=== PATIENT | male | born 1965 | race American Indian/Alaskan Native ===

== ENCOUNTER 2017-10-25 21:21 | Inpatient (IN) | payer OTHER ==
--- NOTE | 2017-10-25 22:22 | ED PDOC ---
Arrival/HPI - General Chief Complaint: Medical Clearance Time Seen by Provider: 10/25/17 22:12 Historian: Patient - History of Present Illness Narrative History of Present Illness (Text): 10/25/17 22:15 Chapincito Trent is a 52 year old male, whose past medical history includes salivary gland stone s/p parotidectomy, who presents to the Emergency department complaining of right-sided facial swelling today after eating. Patient denies any pain to the area and notes symptoms are similar to his previous salivary gland stone symptoms. Patient denies any rash, throat/lip swelling, headache, dizziness, or any other complaints. Time/Duration: Other (tonight) Symptom Onset: Gradual Symptom Course: Unchanged Activities at Onset: Light, Eating Context: Home Past Medical History - Provider Review Nursing Documentation Reviewed: Yes - Infectious Disease Hx of Infectious Diseases: None - Endocrine/Metabolic Hx Diabetes Mellitus Type 1: Yes - Gastrointestinal Hx Gastroesophageal Reflux: Yes - Psychiatric Hx Substance Use: No - Surgical History Other/Comment: salivary glad removed - Anesthesia Hx Anesthesia: Yes Hx Anesthesia Reactions: No Hx Malignant Hyperthermia: No Family/Social History - Physician Review Nursing Documentation Reviewed: Yes Family/Social History: Unknown Family HX Smoking Status: Light Smoker < 10 Cigarettes Daily Hx Alcohol Use: Yes Frequency of alcohol use: Socially Hx Substance Use: No Allergies/Home Meds Allergies/Adverse Reactions: Allergies No Known Allergies Allergy (Unverified 10/25/17 22:21) Home Medications: Home Meds Medication Instructions Recorded Confirmed Unobtainable 10/25/17 10/25/17 Review of Systems - Physician Review All systems were reviewed & negative as marked: Yes - Review of Systems Constitutional: Normal. absent: Fevers Eyes: Normal ENT: Other (+right-sided facial swelling) Respiratory: Normal. absent: SOB, Cough Cardiovascular: Normal. absent: Chest Pain Gastrointestinal: Normal. absent: Abdominal Pain, Diarrhea, Nausea, Vomiting Genitourinary Male: Normal. absent: Dysuria, Frequency, Hematuria, Urinary Output Changes Musculoskeletal: Normal. absent: Back Pain, Neck Pain Skin: Normal. absent: Rash Neurological: Normal. absent: Headache, Dizziness Endocrine: Normal Hemo/Lymphatic: Normal Psychiatric: Normal Physical Exam Vital Signs Reviewed: Yes Vital Signs Temp Pulse Resp BP Pulse Ox 10/26/17 02:37 85 17 138/72 98 10/25/17 22:21 98.4 F 81 18 141/65 98 Temperature: Afebrile Blood Pressure: Normal Pulse: Regular Respiratory Rate: Normal Appearance: Positive for: Well-Appearing, Non-Toxic, Comfortable Pain Distress: None Mental Status: Positive for: Alert and Oriented X 3 - Systems Exam Head: Present: Atraumatic, Normocephalic, Swelling (Soft tissue swelling to right angle of mandible/pre-auricular area, non-tender, no overlying erythema noted). No: Tenderness Pupils: Present: PERRL Extroacular Muscles: Present: EOMI Conjunctiva: Present: Normal Ears: Present: Normal, NORMAL TM, Normal Canal. No: Erythema, TM Bulging, Fluid , TM Perf Mouth: Present: Moist Mucous Membranes Pharnyx: Present: Normal. No: ERYTHEMA, EXUDATE, TONSILS ENLARGED, Peritonsilar Swelling, Uvular Deviation, Muffled/Hoarse Voice, Strider, Soft Palate/Uvular Edema Nose (External): Present: Atraumatic Nose (Internal): Present: Normal Inspection Neck: Present: Normal Range of Motion Respiratory/Chest: Present: Clear to Auscultation, Good Air Exchange. No: Respiratory Distress, Accessory Muscle Use Cardiovascular: Present: Regular Rate and Rhythm, Normal S1, S2. No: Murmurs Upper Extremity: Present: Normal Inspection. No: Cyanosis, Edema Lower Extremity: Present: Normal Inspection. No: Edema Neurological: Present: GCS=15, CN II-XII Intact, Speech Normal Skin: Present: Warm, Dry, Normal Color. No: Rashes Psychiatric: Present: Alert, Oriented x 3, Normal Insight, Normal Concentration Medical Decision Making ED Course and Treatment: 10/25/17 22:15 Impression: 52 year old male complaining of right-sided facial swelling today after eating. Plan: -- CT Maxillofacial -- Labs -- Reassess and disposition Progress Notes: 10/26/17 03:20 CT Maxillofacial shows: There is asymmetry of the submandibular and the parotid glands, being greater on the right. While the increased size of the right sided glands may be partially indicative of infectious/inflammatory process, the glands on the left appear abnormally small. There is asymmetry in the enhancement pattern of the parotid glands being normal on the right and being decreased on the left. There is a small amount of fluid along the lateral aspect of the right parotid gland and to a lesser degree the right mandibular gland. Small scattered lymph nodes are noted throughout the neck. Vasculature appears normal. The airway is patent The sinuses and mastoid air cells are clear. IMPRESSION: Asymmetry of the submandibular and parotid glands being greater on the right. Findings felt to be a combination of infectious/inflammatory process on the right as well as some degree of hypoplasia on the left. 10/26/17 03:[address] Parsons, covering for Dr. Beavers, who is aware and agrees with plan. [facility]. Requests ENT on consult. - Lab Interpretations Lab Results: 10/25/17 23:00 10/25/17 23:00 Lab Results 10/25/17 23:00: WBC 14.0 H, RBC 4.48, Hgb 14.0, Hct 40.6 L, MCV 90.6, MCH 31.3, MCHC 34.5, RDW 13.3, Plt Count 213, MPV 9.7 10/25/17 23:00: Sodium 143, Potassium 4.3, Chloride 106, Carbon Dioxide 25, Anion Gap 17, BUN 16, Creatinine 1.0, Est GFR ( Amer) > 60, Est GFR (Non- Af Amer) > 60, Random Glucose 98, Calcium 9.9, Total Bilirubin 0.2, AST 29, ALT 38, Alkaline Phosphatase 92, Total Protein 7.9, Albumin 4.3, Globulin 3.6, Albumin/Globulin Ratio 1.2 - RAD Interpretation Radiology Orders: 10/25/17 22:55 MAXILLOFACIAL W/CONTRAST [CT] Stat - Medication Orders Current Medication Orders: Ampicillin Sodium/Sulbactam (Sodium 3 gm/ Sodium Chloride) 100 mls @ 100 mls/ hr IVPB STAT STA PRN Reason: Protocol Stop: 10/26/17 04:43 Sodium Chloride (Sodium Chloride 0.9%) 1,000 mls @ 100 mls/hr IV .Q10H [facility] Ibuprofen (Motrin Tab) 400 mg PO Q6H PRN PRN Reason: Pain, Mild (1-3) - Scribe Statement The provider has reviewed the documentation as recorded by the Luisaibdi Braxton Provider Scribe Attestation: All medical record entries made by the Scribe were at my direction and personally dictated by me. I have reviewed the chart and agree that the record accurately reflects my personal performance of the history, physical exam, medical decision making, and the department course for this patient. I have also personally directed, reviewed, and agree with the discharge instructions and disposition. Disposition/Present on Arrival - Present on Arrival Any Indicators Present on Arrival: No History of DVT/PE: No History of Uncontrolled Diabetes: No Urinary Catheter: No History of Decub. Ulcer: No History Surgical Site Infection Following: None - Disposition Have Diagnosis and Disposition been Completed?: Yes Diagnosis: Cellulitis, Salivary gland infection Disposition: HOSPITALIZED Disposition Time: 04:08 Condition: STABLE
[2017-10-25 23:18] LABS: MEAN CELL VOLUME 90.6 fl (80.0-105.0); MEAN CORPUSCULAR HEMOGLOBIN 31.3 pg (25.0-35.0); MEAN CORPUSCULAR HGB CONC 34.5 g/dl (31.0-37.0); MEAN PLATELET VOLUME 9.7 fl (7.0-11.0); RBC 4.48 10^6/uL (3.5-6.1); RED CELL DISTRIBUTION WIDTH 13.3 % (11.5-14.5)
[2017-10-25 23:34] LABS: ALB/GLOB RATIO 1.2 (1.1-1.8); ALBUMIN 4.3 g/dL (3.0-4.8); ALT/SGPT 38 U/L (7-56); AST/SGOT 29 U/L (17-59); BLOOD UREA NITROGEN 16 mg/dL (7-21); CALCIUM 9.9 mg/dL (8.4-10.5); GFR AFRICAN-AMERICAN > 60; GFR NON-AFRICAN AMERICAN > 60
[2017-10-26] MEDS ORDERED: Iohexol 350 MG/100 ML VIAL ONE (01:21)
--- NOTE | 2017-10-26 02:40 | CT ---
EXAM: CT Maxillofacial With Intravenous Contrast EXAM DATE/TIME: 10/25/2017 10:55 PM CLINICAL HISTORY: 52 years old, male; Signs and symptoms; Mass, lump, or swelling; Maxilla; Additional info: Soft tswelling right preauricular/facial/mandible TECHNIQUE: Axial computed tomography images of the face with intravenous contrast. All CT scans at this facility use one or more dose reduction techniques, viz.: automated exposure control; ma/kV adjustment per patient size (including targeted exams where dose is matched to indication; i.e. head); or iterative reconstruction technique. Coronal and sagittal reformatted images were created and reviewed. CONTRAST: 96 mL of OMNI 350 administered intravenously. COMPARISON: No relevant prior studies available. FINDINGS: There is asymmetry of the submandibular and the parotid glands, being greater on the right. While the increased size of the right sided glands may be partially indicative of infectious/inflammatory process, the glands on the left appear abnormally small. There is asymmetry in the enhancement pattern of the parotid glands being normal on the right and being decreased on the left. There is a small amount of fluid along the lateral aspect of the right parotid gland and to a lesser degree the right mandibular gland. Small scattered lymph nodes are noted throughout the neck. Vasculature appears normal. The airway is patent The sinuses and mastoid air cells are clear. IMPRESSION: Asymmetry of the submandibular and parotid glands being greater on the right. Findings felt to be a combination of infectious/inflammatory process on the right as well as some degree of hypoplasia on the left.
[2017-10-26] MEDS ORDERED: SULBACTAM IV STA (03:37)
[2017-10-26] MEDS ORDERED: AMPICILLIN IV STA (03:37)
[2017-10-26] MEDS: Sodium Chloride 0.9% 1,000 ML IV SCH (04:34)
[2017-10-26 05:11] VITALS: BMI 24.8
[2017-10-26] MEDS: Piperacillin/Tazobact 3.375 gm 100 ML IVPB SCH ×4 (06:33→23:12)
--- NOTE | 2017-10-26 12:52 | CP.PCM.CON ---
History of Present Illness - History of Present Illness History of Present Illness: 52 year old male with PMH of left sided parotidectomy due to sialolithiasis, GERD, DM came in to [facility] complaining of sudden onset swelling of the right side of the face after eating dinner, associated with pain. He denies having fever or chills, no rhinorrhea, no cough, no sore throat, no headache or dizziness, no chest pain, no SOB, no abdominal pain, no diarrhea, no dysuria, no dysphagia. As per patient this is how it started with the left side many years ago which lasted for many years before surgery was done. CT scan of the maxillofacial area is showing right sided parotid swelling. Infectious Diseases consult is requested to further evaluate and manage. Review of Systems - Review of Systems All systems: reviewed and no additional remarkable complaints except (as per HPI ) Past Patient History - Infectious Disease Hx of Infectious Diseases: None - Past Social History Smoking Status: Light Smoker < 10 Cigarettes Daily - CARDIAC Hx Cardiac Disorders: Yes Hx Angina: No Hx Cardia Arrhythmia: No Hx Circulatory Problems: No Hx Congestive Heart Failure: No Hx Heart Murmur: No Hx Heart Transplant: No Hx Hypercholesterolemia: No Hx Hypertension: Yes Hx Internal Defibrillator: No Hx Mitral Valve Prolapse: No Hx Pacemaker: No Hx Peripheral Edema: No Hx Peripheral Vascular Disease: No - PULMONARY Hx Respiratory Disorders: No Hx Asthma: No Hx Bronchitis: No Hx Chronic Obstructive Pulmonary Disease (COPD): No Hx Emphysema: No Hx Pneumonia: No Hx Respiratory Aspiration: No Hx Respiratory Tract Infection: No Hx Sleep Apnea: No Hx Tuberculosis: No - NEUROLOGICAL Hx Neurological Disorder: No Hx Alzheimer's Disease: No HX Cerebrovascular Accident: No Hx Dementia: No Hx Dizziness: No Hx Meningitis: No Hx Migraine: No Hx Parkinson's Disease: No Hx Seizures: No Hx Transient Ischemic Attacks (TIA): No - HEENT Hx HEENT Problems: No Hx Blind: No Hx Cataracts: No Hx Deafness: No Hx Difficulty Chewing: No Hx Epistaxis: No Hx Glaucoma: No Hx Macular Degeneration: No - RENAL Hx Chronic Kidney Disease: No Hx Dialysis: No Hx Kidney Stones: No Hx Neurogenic Bladder: No Hx Pyelonephritis: No Hx Renal (Kidney) Cancer: No Hx Renal Failure: No - ENDOCRINE/METABOLIC Hx Endocrine Disorders: Yes Hx Adrenal Cancer: No Hx Diabetes Insipidus: No Hx Diabetes Mellitus Type 1: No 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) Hx Hyperthyroidism: No Hx Hypothyroidism: No Hx Systemic Lupus Erythematosus: No - HEMATOLOGICAL/ONCOLOGICAL Hx Blood Disorders: No Hx AIDS: No Hx Anemia: No Hx Cancer: No Hx Chemotherapy: No Hx Cirrhosis: No Hx Hemophilia: No Hx Hepatitis A: No Hx Hepatitis B: No Hx Hepatitis C: No Hx Human Immunodeficiency Virus (HIV): No Hx Metastesis: No Hx Shingles: No Hx Sickle Cell Disease: No Hx Unexplained Bleeding: No - INTEGUMENTARY Hx Dermatological Problems: No Hx Basil Cell: No Hx Eczema: No Hx Melanoma: No Hx Psoriasis: No Hx Squamous Cell: No - MUSCULOSKELETAL/RHEUMATOLOGICAL Hx Falls: No - GASTROINTESTINAL Hx Gastrointestinal Disorders: Yes Hx Colostomy: No Hx Crohn's Disease: No Hx Diverticulitis: No Hx Gall Bladder Disease: No Hx Gastroesophageal Reflux: Yes (takes pepcid) Hx Ileostomy: No Hx Liver Failure: No Hx Pancreatitis: No HX Swallowing Problems: No Hx Ulcer: No - GENITOURINARY/GYNECOLOGICAL Hx Genitourinary Disorders: Yes Hx Hematuria: No Hx Incontinence: No Hx Prostate Problems: No Hx Sexually Transmitted Disorders: No Hx Urinary Tract Infection: Yes - PSYCHIATRIC Hx Substance Use: No - SURGICAL HISTORY Hx Surgeries: Yes Hx Amputation: No Hx Appendectomy: No Hx Cardiac Catheterization: No Hx Cholecystectomy: No Hx Coronary Stent: No Hx Gastric Bypass Surgery: No Hx Hysterectomy: No Hx Joint Replacement: No Hx Kidney Transplant: No Hx Liver Transplant: No Hx Mastectomy: No Hx Musculoskeletal Surgery: No Hx Open Heart Surgery: No Hx Orthopedic Surgery: No Hx Splenectomy: No Hx Valve Replacement: No Other/Comment: salivary glad removed - ANESTHESIA Hx Anesthesia: Yes Hx Anesthesia Reactions: No Hx Malignant Hyperthermia: No Meds Allergies/Adverse Reactions: Allergies Allergy/AdvReac Type Severity Reaction Status Date / Time No Known Allergies Allergy Unverified 10/25/17 22:21 - Medications Medications: Current Medications Sodium Chloride (Sodium Chloride 0.9%) 1,000 mls @ 100 mls/hr IV .Q10H ANNETTE Last Admin: 10/26/17 04:34 Dose: 100 mls/hr Ibuprofen (Motrin Tab) 400 mg PO Q6H PRN PRN Reason: Pain, Mild (1-3) Physical Exam - Constitutional Appears: Non-toxic - Head Exam Head Exam: NORMAL INSPECTION - ENT Exam ENT Exam: Mucous Membranes Moist Additional comments: right side of face with swelling - Neck Exam Neck exam: Negative for: Meningismus - Respiratory Exam Respiratory Exam: absent: Rales, Rhonchi - Cardiovascular Exam Cardiovascular Exam: +S1, +S2 - GI/Abdominal Exam GI & Abdominal Exam: Soft. absent: Tenderness Results - Vital Signs Recent Vital Signs: Last Vital Signs Temp 98.1 F 10/26/17 04:54 Pulse 74 10/26/17 04:54 Resp 19 10/26/17 05:02 BP 118/72 10/26/17 04:54 Pulse Ox 100 10/26/17 04:54 - Labs Result Diagrams: 10/25/17 23:00 10/25/17 23:00 Assessment & Plan - Assessment and Plan (Free Text) Plan: Assessment Leukocytosis due to right sided parotitis R/O sialolithiasis left sided parotidectomy due to sialolithiasis GERD DM Plan Started the patient on Zosyn pending blood cx; reviewed maxillofacial CT follow up ENT evaluation and recommendations will monitor clinically
[2017-10-26 17:36] VITALS: RESP 18
--- NOTE | 2017-10-26 23:14 | HP ---
DATE OF EXAM: HISTORY OF PRESENT ILLNESS: Patient is a 52-year-old black male, who came to Emergency Room for right submandibular swelling. He states yesterday after he ate popcorn, he started to have swelling, then became painful and he was unable to open his mouth. Pain was radiating towards his right ear. Denies any fever or chills, denies any dental issues. Patient states he had similar episode 10 years ago on his left side and he ended up having parotid gland resection done. Denies any fever or chills. No history of nausea or vomiting. PAST MEDICAL HISTORY: Significant for 1. Right parotidectomy 2. Hypertension. 3. Hyperlipidemia. ALLERGY: HE IS NOT ALLERGIC TO ANY MEDICATIONS. MEDICATION AT HOME: He is on statin. SOCIAL HISTORY: He lives with his family, works on [address]. PHYSICAL EXAMINATION: GENERAL: He is awake, alert, oriented, communicative. VITAL SIGNS: He is afebrile. Pulse 64, respirations 20, blood pressure 114/78. LUNGS: Bilateral good air flow. No rhonchi or crackles. HEART: S1 and S2 audible. ABDOMEN: Soft, nontender, no rebound, no guarding. NEUROLOGICAL: He is awake, alert, oriented, communicative. HEAD AND NECK: He has right angle of mandible and parotid area swelling that is somewhat tender and some restriction to open his mouth. LABORATORY DATA: WBC is 14, hemoglobin 14, hematocrit 40. Chemistry: Sodium 143, potassium 4.6, chloride 106, CO2 of 25, BUN 16, creatinine 1, blood sugar 98. LFTs are within normal limits. He had maxillofacial CT scan done that shows asymmetry of submandibular and parotid gland being greater on the right. Finding felt to be combination of infectious versus inflammatory process on the right side as well as some degree of hyperplasia on the left. ASSESSMENT AND PLAN: 1. Right sialadenitis and parotitis. 2. Hypertension. 3. Leucocytosis. PLAN: Start patient on ibuprofen. He is on IV fluid. Continue him on antibiotics as recommended by ID and awaiting ENT input and we will make further plan. Shawn Beavers MD
[2017-10-27 03:32] VITALS: O2SAT 97
--- NOTE | 2017-10-27 05:05 | CP.PCM.PN ---
Subjective - Date & Time of Evaluation Date of Evaluation: 10/27/17 Time of Evaluation: 05:02 - Subjective Subjective: S: Seen for upset stomach. Has heart burn. Has no other complaints. Lobo chest pain, sob. Medical record was reviewed. O: Last Vital Signs 3 Temp 97.5 F L 10/27/17 03:30 Pulse 67 10/27/17 03:30 Resp 18 10/27/17 03:30 BP 130/78 10/27/17 03:30 Pulse Ox 97 10/27/17 03:30 Awake, alert, not in distress. LUNGS:Normal breathing pattern. A:Heart burn. P:Pepcid 20 mg PO x1. Objective - Vital Signs/Intake and Output Vital Signs (last 24 hours): Temp Pulse Resp BP Pulse Ox 97.5 F L 67 18 130/78 97 10/27/17 03:30 10/27/17 03:30 10/27/17 03:30 10/27/17 03:30 10/27/17 03:30 Intake and Output: 10/26/17 10/27/17 18:59 06:59 Intake Total 1260 Balance 1260 - Medications Medications: Current Medications Atorvastatin Calcium (Lipitor) 10 mg PO DIN [facility] Last Admin: 10/26/17 17:58 Dose: 10 mg Dexamethasone (Decadron Inj) 10 mg IVP DAILY [facility] Last Admin: 10/26/17 18:30 Dose: 10 mg Sodium Chloride (Sodium Chloride 0.9%) 1,000 mls @ 100 mls/hr IV .Q10H [facility] Last Admin: 10/26/17 04:34 Dose: 100 mls/hr Piperacillin Sod/Tazobactam Sod (Zosyn 3.375 In Ns 100ml) 100 mls @ 200 mls/hr IVPB Q6 [facility] PRN Reason: Protocol Stop: 11/02/17 06:31 Last Admin: 10/26/17 23:12 Dose: 200 mls/hr Ibuprofen (Motrin Tab) 400 mg PO Q6H [facility] Last Admin: 10/26/17 23:11 Dose: 400 mg
[2017-10-27] MEDS: Sodium Chloride 0.9% 1,000 ML IV SCH (05:47)
[2017-10-27] MEDS: Piperacillin/Tazobact 3.375 gm 100 ML IVPB SCH (05:49)
[2017-10-27 06:31] LABS: BASO # 0.01 K/mm3 (0.0-2.0); BASO % 0.1 % (0.0-3.0); EOS % 0.1 % (1.5-5.0); GRAN # 13.17 (1.4-6.5); HEMOGLOBIN 13.5 g/dL (14.0-18.0); LYMPH # 2.6 (1.2-3.4); LYMPH % 15.6 % (22.0-35.0); MEAN CORPUSCULAR HEMOGLOBIN 30.5 pg (25.0-35.0); MEAN CORPUSCULAR HGB CONC 33.9 g/dl (31.0-37.0); MEAN PLATELET VOLUME 10.7 fl (7.0-11.0); MONO # 0.7 (0.1-0.6); MONO % 4.2 % (1.0-6.0); RBC 4.42 10^6/uL (3.5-6.1); RED CELL DISTRIBUTION WIDTH 13.3 % (11.5-14.5); WHITE BLOOD COUNT 16.5 10^3/ul (4.5-11.0)
[2017-10-27 07:41] LABS: ALB/GLOB RATIO 1.1 (1.1-1.8); ALBUMIN 4.1 g/dL (3.0-4.8); ALT/SGPT 31 U/L (7-56); AST/SGOT 28 U/L (17-59); BLOOD UREA NITROGEN 11 mg/dL (7-21); CALCIUM 9.3 mg/dL (8.4-10.5); GFR AFRICAN-AMERICAN > 60; GFR NON-AFRICAN AMERICAN > 60
[2017-10-27 08:27] VITALS: BP 112/68; PULSE 58; TEMP 97.6
--- NOTE | 2017-10-27 08:48 | CON ---
DATE: 10/26/2017 HISTORY OF PRESENT ILLNESS: This 52-year-old male seen in room 373 on consultation. A 52-year-old male with past medical history of a left-sided submandibulectomy/parotidectomy due to sialolithiasis, has GERD and diabetes. Came in to the [facility] complaining of sudden onset of swelling of the right side of the face, is now seen at the bedside with acute swelling of the right parotid while eating, associated with pain. He denies having fever or chills. No rhinorrhea. No cough. No sore throat. No headaches or dizziness. States left sialolithiasis he had years ago, which lasted for many years before surgery was done. CAT scan of the maxillofacial area showing right-sided parotid swelling. Infectious Disease and ENT were consulted, and now ENT here to evaluate review of systems. Infectious Disease consultation noted. He is a light smoker, less than 10 cigarettes daily. Cardiac history is negative. Neurologic history is negative. ENT or HEENT with noted history of previous recurrent sialolithiasis resulting in surgical correction. Kidney disease is denied. Musculoskeletal within normal. PHYSICAL EXAMINATION: VITAL SIGNS: At the time of exam, temperature 98.1, pulse 74, 19 respiratory rate, 118/72 blood pressure. LABORATORY DATA: White count was 14, H and H 14/46, and 213. On 10/25/2017; 143/4.3, 106, 25, 16, 1 and 98 as noted lab results. IMPRESSION AND PLAN: Acute parotitis, sialolithiasis, status post left-sided parotid/submandibular with history of gastroesophageal reflux disease. The patient was started on antibiotic protocol and is seen now with an acute swelling, and Decadron was recommended, even though diabetes has focused to follow sugars. On CAT scan, impression of asymmetry of the submandibular and parotid glands, being greater on the right. Findings; combination of infectious and inflammatory process with diagnosis of acute parotitis. The patient is advised and shown warm compresses, 20 minutes on, 20 minutes off. Acute massage and milking of parotid/Stensen's duct. The patient was advised not to eat this point, to massage and increase liquids, IV antibiotics, and p.o. pain medication regimen. A dose of Decadron given at this point for increased swelling. The patient will be continued to follow and maintained over the next 24-48 hours with IV antibiotics. The patient can be placed on p.o. antibiotics and followed in the office of Dr. Rodríguez Doherty over the next 48 to 72 hours pending course. Rodríguez Doherty DO
--- NOTE | 2017-10-27 14:51 | CP.PCM.PN ---
Subjective - Date & Time of Evaluation Date of Evaluation: 10/27/17 Time of Evaluation: 11:40 - Subjective Subjective: Patient is feeling better, improving swelling on the right side of the face, no fevers, eating better. Objective - Vital Signs/Intake and Output Vital Signs (last 24 hours): Temp Pulse Resp BP Pulse Ox 97.5 F L 67 18 130/78 97 10/27/17 03:30 10/27/17 03:30 10/27/17 03:30 10/27/17 03:30 10/27/17 03:30 Intake and Output: 10/26/17 10/27/17 18:59 06:59 Intake Total 1260 Balance 1260 - Medications Medications: Current Medications Atorvastatin Calcium (Lipitor) 10 mg PO DIN [facility] Last Admin: 10/26/17 17:58 Dose: 10 mg Dexamethasone (Decadron Inj) 10 mg IVP DAILY [facility] Last Admin: 10/26/17 18:30 Dose: 10 mg Sodium Chloride (Sodium Chloride 0.9%) 1,000 mls @ 100 mls/hr IV .Q10H [facility] Last Admin: 10/27/17 05:47 Dose: 100 mls/hr Piperacillin Sod/Tazobactam Sod (Zosyn 3.375 In Ns 100ml) 100 mls @ 200 mls/hr IVPB Q6 [facility] PRN Reason: Protocol Stop: 11/02/17 06:31 Last Admin: 10/27/17 05:49 Dose: 200 mls/hr Ibuprofen (Motrin Tab) 400 mg PO Q6H [facility] Last Admin: 10/27/17 05:50 Dose: Not Given - Labs Labs: 10/27/17 05:30 - Constitutional Appears: Non-toxic - Head Exam Head Exam: NORMAL INSPECTION - ENT Exam Additional comments: right side of the face with decreased swelling, non-tender - Neck Exam Neck Exam: absent: Lymphadenopathy, Meningismus - Respiratory Exam Respiratory Exam: Decreased Breath Sounds. absent: Rales - Cardiovascular Exam Cardiovascular Exam: +S1, +S2 - GI/Abdominal Exam GI & Abdominal Exam: Soft. absent: Tenderness Assessment and Plan - Assessment and Plan (Free Text) Plan: Assessment Leukocytosis due to right sided parotitis R/O sialolithiasis, improving left sided parotidectomy due to sialolithiasis GERD DM Plan on Zosyn day 2; blood cx are negative; reviewed maxillofacial CT patient can be switched to PO Augmentin to complete 7 days of therapy, with outpatient follow up with ENT - discussed with Dr. Beavers
--- NOTE | 2017-10-28 16:01 | DS ---
HISTORY OF PRESENT ILLNESS: The patient is a 52-year-old, who was admitted with right submandibular cheek swelling. The patient had similar episode 10 years ago and ended up having parotidectomy. The patient has been on IV antibiotics, was seen by Dr. Doherty, started on Decadron with significant improvement. PHYSICAL EXAMINATION: GENERAL: Today, he is awake, alert, oriented, communicative. VITAL SIGNS: He is afebrile, pulse , respirations 18, blood pressure 112/68. LUNGS: Bilateral fair airflow. No rhonchi or crackle. HEART: S1, S2 audible. ABDOMEN: Soft, nontender. No rebound. No guarding. NEUROLOGIC: He is awake, alert, oriented, communicative. His right angle of mandible swelling has significantly improved. LABORATORY DATA: WBC is 16.5, hemoglobin 13.5, hematocrit 39.8, platelet 226. Chemistry, sodium 142, potassium 4.3, chloride 110, CO2 of 20, BUN 11, creatinine 0.8, blood sugar 149. ASSESSMENT AND PLAN: 1. Right sialadenitis. 2. History of left parotidectomy and submandibular gland resection. 3. Gastroesophageal reflux disease. 4. Hypertension. 5. Hyperlipidemia. PLAN: The patient is being discharged home on Augmentin 500 three times a day. He is given prednisone 20 mg twice a day for a week and he is advised to hydrate himself and use to increase salivation. He will follow up with his previous doctor who did surgery on him . Dr. Doherty is out of his network. Shawn Beavers MD
== END 2017-10-27 14:56 | disposition home or self-care (01) | DRG 156 ==
LOC: ED 21:21 → ERH 10-26 03:49 → 3RSO 10-26 04:55 → OBSVTOIN 10-26 22:06
PROVIDERS: ADMIT Internal Medicine; ATTEND Internal Medicine
DX: K11.21 Acute sialoadenitis (principal); I10 Essential (primary) hypertension; F17.210 Nicotine dependence, cigarettes, uncomplicated; E78.5 Hyperlipidemia, unspecified; K21.9 Gastro-esophageal reflux disease without esophagitis; E10.9 Type 1 diabetes mellitus without complications; D72.829 Elevated white blood cell count, unspecified; Z87.440 Personal history of urinary (tract) infections